=== PATIENT | male | born 1975 | race Caucasian/White ===

== ENCOUNTER 2022-10-30 17:29 | Outpatient (CLI) | payer OTHER, SELFPAY ==
--- NOTE | ~2022-10-30 | CT_ITS ---
EXAMINATION: CT abdomen pelvis wo con DATE: 10/30/2022 17:47 INDICATION: HEMATURIA, BACK PAIN. No history of prior abdominal surgery. No history of recent trauma. TECHNIQUE: Computed tomography (CT) of the abdomen and pelvis was performed without intravenous contr ast. Automated exposure control and iterative reconstruction technique were employed. The dose-length product was 464.05 mGy-cm. COMPARISON: None. FINDINGS: Lower thorax: Unremarkable Liver: Normal. Biliary/Gallbladder: Gallbladder is normal. No bile duct dilation. Pancreas: No mass or duct dilation. Spleen: Normal. Adrenals:No mass. Kidneys: Mild left pelviectasis and caliectasis, with mild surrounding inflammatory change. Small-vol ume pericapsular fluid at the left inferior pole. Small volume fluid/thickening of the inferior later al conal fascia on the left. 3 x 8 mm density projecting in the expected pathway of the mid left uret er, may represent a curvilinear calcification or smaller adjacent stones giving a curvilinear appeara nce. Punctate nonobstructing right calculi. GI tract: No small or large bowel dilation. Normal appendix. Mesentery/Peritoneum: No ascites, mass, or free air. Retroperitoneum: No mass. Pelvis: Pelvic organs are within normal limits. Soft Tissues: Soft tissues and body wall unremarkable. Bones: No acute osseous finding. Partial sacralization of L5 on the left. IMPRESSION: 3 x 8 mm curvilinear calcification projecting in the expected pathway of the mid left ureter, likely renal stone/stones causing mild obstructive uropathy. Reviewed, dictated and finalized at location K. IMPRESSION: 3 x 8 mm curvilinear calcification projecting in the expected pathway of the mi d left ureter, likely renal stone/stones causing mild obstructive uropathy.
== END 2022-10-30 17:30 | disposition home or self-care (01) ==
LOC: ANHIMG 17:32
PROVIDERS: PCP Family Medicine; Visit Provider Family Medicine
DX: R31.9 Hematuria, unspecified (principal); M54.50 Low back pain, unspecified; N20.1 Calculus of ureter
CPT/HCPCS: 74176

== ENCOUNTER → 2022-11-05 07:08 | Outpatient (CLI) | payer OTHER, SELFPAY ==
--- NOTE | ~2022-11-05 | XR_ITS ---
EXAMINATION: XR abdomen/kub 1V INDICATION: Left flank pain, calculus of ureter TECHNIQUE: Supine views of the abdomen were obtained on 2 radiographs. COMPARISON: CT, 10/30/2022 FINDINGS: The previously described left ureteral stone appears to have migrated to the left ureterove sicular junction. No additional urolithiasis is identified. The bowel gas pattern is normal. The visu alized lung bases are clear. IMPRESSION: 1. Probable distal migration of the previously described left ureteral stone to the ureterovesicular junction. Reviewed, dictated and finalized at location L.
== END ==
PROVIDERS: PCP Family Medicine; Visit Provider Urology
DX: N20.1 Calculus of ureter (principal)
CPT/HCPCS: 74018

== ENCOUNTER 2022-11-05 16:51 | Outpatient (CLI) | payer OTHER, SELFPAY ==
[2022-11-05 18:48] LABS: Partial Thromboplastin Time 30.2 SECONDS (22.3-36.8); Prothrombin Time 13.9 Seconds (11.1-14.7)
== END 2022-11-05 16:52 | disposition home or self-care (01) ==
LOC: ANHLAB 16:53
PROVIDERS: PCP Family Medicine; Visit Provider Urology
DX: N20.0 Calculus of kidney (principal); Z01.818 Encounter for other preprocedural examination
CPT/HCPCS: 36415; 85610; 85730; 87086; 87088

== ENCOUNTER 2022-11-08 04:41 | Day surgery (SDC) | payer OTHER, SELFPAY ==
--- NOTE | 2022-11-05 15:55 | SUR.PREOP ---
Report to the Outpatient Waiting Room, entrance under the green pavilion located off [facility], at time 1130 on date 11/08/22. Planned Procedure Time: 1330. Time changes happen often and if your time is changed the preop area will call you the afternoon before. - You and your visitor will be asked to self-screen and do not enter if you have any COVID symptoms. - A mask is optional within the hospital at this time. Patients may have clear liquids (water, carbonated beverages, clear teas, apple juice) until 3 hours prior to surgery with a maximum of 20 ounces. - NO CLEAR LIQUIDS AFTER 1030 - No food from midnight until time of surgery - Infants may have breast milk until 4 hours before surgery, infant formula 6 hours prior to surgery. - Children will be allowed to drink immediately following surgery. If applicable, please bring a bottle or sippy cup to assist with drinking. Juice, water, soda, and popsicles are readily available. For infants on formula, please bring formula the day of surgery. Pacifiers are allowed. Take the following medications with a SIP of water the morning of surgery: OXYCODONE DO NOT STOP ANY OF YOUR OTHER PRESCRIPTION MEDICATIONS PRIOR TO SURGERY ?EXCEPT THE FOLLOWING Medications to discontinue per physician STOP IBUPROFEN TODAY Date of last dose taken 11/04/22 Please no make-up, nail luxembourger, hairspray, perfume, deodorant, or body powder the day of surgery. No jewelry (including any body piercings) or valuables the day of surgery, leave them at home. Please take a shower or bath the night before, or the morning of, surgery with an antibacterial soap. Wear comfortable, loose fitting clothing. Children are encouraged to wear pajamas. - Jewelry must be removed prior to entering the operating room. Rings and piercings that are not removed may be cut off. - The hospital will not accept responsibility for valuables. - Please leave all valuables, including medications, at home the day of surgery. If you are going home after surgery, a licensed class a truck driver must drive you home. - NO public transportation without another adult if you receive anesthesia. - We recommend that an adult stay with you for 24 hours following discharge. - We also recommend that you do not drive, make important decision, drink alcoholic beverages, or take any drugs that were not prescribed by your health care provider for at least 24 hours after your discharge time. For Pediatric surgeries, we recommend two adults accompany the child home. Follow any additional instructions given to you from your surgeon. If you or anyone in your household have experienced Covid symptoms in the past week, please notify your surgeon or the nurse liaison at the phone number below for possible testing. Telephone instructions given to DANNY JIMENEZ and asked if any additional questions and then verbalized understanding. Patient advised to call surgeon office or pre surgery nurse liaison [phone] if any additional questions.
[2022-11-05 16:14] VITALS: BMI 25.1
[2022-11-08] VITALS (8 sets, daily range): BP systolic 118–139; BP diastolic 74–98; PULSE 62–86; RESP 12–16; TEMP 36.6–36.7; O2SAT 100
--- NOTE | ~2022-11-08 | CT_ITS ---
EXAMINATION: CT abdomen pelvis wo con DATE: 11/08/2022 12:01 INDICATION: Left ureteral stone TECHNIQUE: Computed tomography (CT) of the abdomen and pelvis was performed without intravenous contr ast. The dose-length product (DLP) was 225.20 mGy-cm. Automated exposure control and iterative recons truction technique were employed. COMPARISON: None FINDINGS: The lung bases are clear. The heart size is normal. The liver, spleen, pancreas, gallbladde r, and adrenal glands are normal. The kidneys are unremarkable. There is a 5 mm stone at the left ure terovesicular junction. No pathologically enlarged abdominal or pelvic lymph nodes are identified. No free intraperitoneal gas or evidence of bowel obstruction. IMPRESSION: 1. 5 mm stone at the left ureterovesicular junction. Reviewed, dictated and finalized at location B.
--- NOTE | ~2022-11-08 | XR_ITS ---
EXAMINATION: XR abdomen/kub 1V DATE: 11/08/2022 11:48 INDICATION: Left kidney stone. TECHNIQUE: A supine view of the abdomen on 2 radiographs was obtained. COMPARISON: CT abdomen and pelvis 10/30/2022 FINDINGS: There are no dilated loops of bowel. IMPRESSION: 1. No visible urolithiasis. Reviewed, dictated and finalized at location A. IMPRESSION: 1. No visible urolithiasis.
--- NOTE | 2022-11-08 07:15 | WPDHPUPDATE1 ---
History and Physical Update Update Date/Time: 11/08/22 07:15 History and Physical has been reviewed, including an updated exam of the patient. There are NO changes in the patient's condition. Risks, benefits, and alternatives have been discussed and questions answered. Patient agrees to proceed with procedure.
--- NOTE | 2022-11-08 09:31 | WPDANESEPPF ---
Anes - Initial Pre Proc Eval Procedure: Operation Date: 11/08/22 13:30 Proposed Procedures p Left Extracorporeal Shock Wave Lithotripsy - Ren Bailey MD Date/Time: 11/08/22 09:31 Surgeon: Ren Bailey MD Pre Op Diagnosis: left ureteral stone Patient Data Age: 47 Gender: M Height: 1.8 m Weight: 81.7 kg Allergies Allergy/AdvReac Type Severity Reaction Status Date / Time No Known Allergies Allergy Verified 11/05/22 16:12 Home Medications Medication Instructions Recorded Confirmed Type hydrocodone 5 mg-acetaminophen 325 1 tablet PO Q4-6H PRN Pain 11/05/22 11/05/22 History mg tablet ibuprofen 200 mg tablet 400 mg PO HS PRN Pain 11/05/22 11/05/22 History tamsulosin 0.4 mg capsule 0.4 mg PO DAILY 11/05/22 11/05/22 History Patient hx anesthesia problems: none Family hx anesthesia problems: none Results Review: All pre-operative results and documents have been reviewed as part of the pre-operative evaluation. FOR[facility] Social History Social History Smoking status: Never smoker Alcohol intake: current Drinks per week: 3 Living arrangements: with family Spiritual care concerns: No Anes - Eval Final PreProcedure Day of Procedure 11/08/22 09:31 Patient weight: overweight Heart: regular rate and rhythm Lungs: clear to auscultation Airway: Mallampati scale class II Neurological: alert and oriented Last oral intake: >/= 8 hours ASA classification: II Emergent: no Anesthetic plan: proceed Anesthesia type and monitoring: general GIVS and standard monitoring Results Review: All pre-operative results and documents have been reviewed as part of the pre-operative evaluation. Informed Consent: The patient's anesthetic plan and its attendant risks and benefits were discussed with the patient/family/POA. Questions were solicited and answers provided to the satisfaction of the patient/family/POA.
[2022-11-08] MEDS: LACTATED RINGERS 1,000 ML 30 ML IV CONT (12:35)
[2022-11-08] MEDS: ceFAZolin 2 GM/D5W 50 ML 2 GM/50 ML BAG IVPB (12:53)
[2022-11-08] MEDS: KETOROLAC 30 MG/ML VIAL (*BKC) IV PUSH (13:45)
[2022-11-08] MEDS: LIDOCAINE HCL 2% GEL UROJET 10 ML PKG MUCOUS MEM (13:55)
[2022-11-08] MEDS: fentaNYL CITRATE INJ (*CRX) 100 MCG/2 ML VIAL 25 MCG IV PUSH ×2 (14:06→14:08)
--- NOTE | 2022-11-08 14:09 | W.PM.PROC2 ---
Procedure Note - Detailed Date of Procedure 11/08/22 Pre-op Diagnosis Left ureteral stone Post-op Diagnosis Same Procedure Performed cystoscopy, left ureteroscopy with stone extraction Surgeon Ren Bailey MD Anesthesia General Description of Procedure Initially this patient was scheduled for ESWL for a left distal ureteral stone. On preoperative KUB, however, could identify the stone. Repeat CT scan showed persistence of a probable stone either in his bladder at the UVJ. In light of that we opted against ESWL and instead for ureteroscopy with stone extraction. He was prepped draped in routine sterile fashion while in a frog-leg position after the uneventful induction of a general LMA anesthetic. Cystoscopy was undertaken with a 19 F rigid cystoscope. There was no intravesical foreign body or neoplasm and specifically no identifiable stone. advanced a 0.035 in glidewire was left renal pelvis under fluoroscopy and dilated the distal ureter with an 8 F 10 F dilator. Ureteroscopy was undertaken a 7.5 F flexible ureteral scope. Found the stone in his distal ureter and extracted with a 1.9 F disposable stone basket. Because of the ease of this manipulation I opted not to place ureteral stent. The patient's bladder was emptied after removing scopes and wires. He was taken to recovery room good condition. Estimated Blood Loss 0 Drains No Packing No Pathology None sent Complications No immediate complications Condition Stable Disposition PACU
[2022-11-08] MEDS: oxyCODONE HCL (*CRX) 5 MG TAB IR PO (14:38)
== END 2022-11-08 15:45 | disposition home or self-care (01) ==
PROVIDERS: PCP Family Medicine; Visit Provider Urology
PROC: (CPT 50590; principal; 2022-11-08 13:30)
DX: N20.1 Calculus of ureter (principal)
CPT/HCPCS: 52352; 36415; 74018; 74176; 82365; 85610; 85730; 87086; 87088; 88300; A9270; C1769; J0690; J1100; J1885; J2250; J2405; J2704; J3010; J7120